=== PATIENT | female | born 1990 | race Caucasian/White ===

== ENCOUNTER 2020-02-23 17:18 | Inpatient (IN) ==
[2020-02-23] MEDS ORDERED: OXYTOCIN 30 UNITS/500 ML BAG IV PRN (17:22)
[2020-02-23 18:11] LABS: Hematocrit (blood only) 35.9 % (37-47); Hemoglobin 12.3 g/dL (12.0-16.0); Mean Corpuscular Hemoglobin 30.3 pg (25-34); Mean Corpuscular Volume 88.4 fL (80-100); Platelet Count 237 K/uL (130-400); RDW Coefficient of Variation 12.2 % (11.5-14.5); RDW Standard Deviation 38.9 fL (36.4-46.3); Red Blood Count 4.06 M/uL (4.2-5.4); White Blood Count 10.03 K/uL (4.8-10.8)
[2020-02-23 18:12] LABS: Mean Corpuscular Hgb Conc 34.3 g/dL (32-36)
--- NOTE | 2020-02-23 18:19 | History & Physical Report ---
Date of Service February 23, 2020 Assessment & Plan (1) with 37 weeks completed gestation: (2) PROM (premature rupture of membranes): Long discussion with patient about her situation. Unfortunately prom prior to labor and cervix is very unfavorable. discussed the consent form in detail. Discussed risk of rupture in spon labor 1% but in induced labor can be as high as 3%. Discussed could expectantly manage and see if has spontaneous onset of labor but discussed risk of infection with longer rom. GBS neg. Discussed likely need for pitocin, iupc and increased monitoring with dedrick. discussed would encourage epidural with dedrick. Would recommend some sort of intervention at 12 hours post rom. discussed not a candidate for cervical ripening because of her previous c/s. Fetus is category one. discussed increased risk of complication with c/s after failed trial of labor. Her covid test has come back negative. Her is now on his way from [place]. The consent form was reviewed with her point by point. She is leaning toward c/s but wants to discuss with which is reasonable. Questions answered to the best of my ability. Admission and Anticipated Discharge Date Admission Date: February 23, 2020 History of Present Illness Chief Complaint: leaking fluid Primary Care Provider: Jacquie Martinez PA-C Patient is a 29yowf with iup at 37 4/7 weeks by good dating who presents to labor and delivery with prom. Patient awoke this am and her underwear felt wet. She was advised to put on a pad and really did not feel any further leaking until she bent down to her toddler and had a large gush of fluid at abo ut 3:30pm. She has continued to grossly leak clear fluid. She feels an occasional ctx. Her last check in the office was c/l/h. She has desired . Her previous was a postdates c/s. She notes she was brought in for induction and had what sounds like several cervical ripening methods and pitocin and never dilated. REcord available and had ltcs. has otherwise been uncomplicated. labs--A+/ab-/ri/rprnr/hiv-/hepb-/gc/ct-/gbs neg/ 16 week gtt 139/ nl 2 hr gtt at 15 and 28/ covid neg today Allergies Allergy/AdvReac Type Severity Reaction Status Date / Time No Known Allergies Allergy Verified 02/19/20 13:57 Home Medications Home Medications Medication Instructions Recorded Confirmed Type prenat.vits,ashley,[id number] 1 tab PO DAILY 07/31/19 02/19/20 History lactobacillus combination no.8 PO 01/01/20 02/19/20 History breast pump #1 ea 01/21/20 02/19/20 Rx cholecalciferol (vitamin D3) PO 01/29/20 02/19/20 History metronidazole 0.75 % vaginal gel 1 appful VAGINAL DAILY 5 Days #70 g 02/15/20 02/19/20 Rx ascorbic acid-elderberry fruit PO 02/19/20 02/19/20 History Patient History Medical History (Updated 02/23/20 @ 18:24 by Reyna Hawkins MD, FACOG) Varicella Surgical History (Updated 07/31/19 @ 11:12 by Clarisa Taylor) S/P section Family History (Updated 07/31/19 @ 11:14 by Clarisa Taylor) Father Hypertension Aunt Multiple sclerosis Denies family history of Ovarian cancer Breast cancer Colorectal cancer Social History (Updated 07/31/19 @ 11:00 by Clarisa Taylor) Smoking Status: Never smoker Hx Alcohol Use: No Hx Substance Use: No Preferred Language: Yakut Communication Ability: Effective Beliefs That Will Affect Care: None marital status: marital status details: Mitch Cano (29) [phone] Current Living Situation: Family Current Living Situation Comment: spouse and daughter current occupational status: employed 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 Other Information That Helps Us Care for You: No Feels Safe at Home: Yes Safety Concerns: Feels Safe At This Time Assistive Devices: None OB History G1--08/07, c/s for failure to induce, 7#14oz [employer] OFFIC[employer] History no stds, no abnl paps Review of Systems All systems reviewed & are unremarkable except as noted in HPI & below Physical Exam Constitutional: WD/WN, vitals as above Gastrointestinal (Abdomen): soft, gravid, nt Psychiatric: A+Ox3, euthymic affect Genitourinary: sse--grossly ruptured cx--cl/50/-3/firm/mid toco--ewa efm--140s with mod variability, accels to 160s, no decels Results & Data ([facility]) Vital Signs (Past 12 Hours) Vital Signs Temp Pulse Resp BP 02/23/20 17:25 37.2 C 80 20 112/81 Code Status & VTE Plan VTE Prophylaxis Plan VTE Prophylaxis will be ordered: No Coding Level of Care Code None Diagnoses with 37 weeks completed gestation Z3A.37 PROM (premature rupture of membranes) O42.90
--- NOTE | 2020-02-23 20:44 | Communication Note ---
Date of Service: February 23, 2020 Once the patient's arrived , we again had a conversation about the plan from here. Again reiterated what I told the patient earlier. IN the meantime, she notes her contractions have become more noticable. toco--q3-5min, fetus category one. They have decided that they would like expectant management at this point. Asked when I would reevaluate and I told her probably at midnight, that would be about 8 hours after rupture. Discussed that I would recommend some type of intervention at 12 hours s/p prom. She notes she is not sure she w ants intervention/pitocin if her "body does not do this naturally". We will reevaluate at [place] and discuss situation again at that point.
[2020-02-24] MEDS ORDERED: OXYTOCIN 30 UNITS/500 ML BAG IV PRN ×2 (00:25→10:01)
--- NOTE | 2020-02-24 00:25 | Labor Progress Brief Note ---
Date of Service February 24, 2020 Subjective walked. notes she is feeling contractions. Still not rating high on pain scale. Assessment & Plan (1) PROM (premature rupture of membranes): Admission and Anticipated Discharge Date Admission Date: February 23, 2020 Discussed progress/lack of progress and what to expect. Discussed I am not surprised she has not made any change based on what has happened in the last few hours. discussed options still the same--c/s now, expectant for a few more hours, pit now. Discussed that 3 hours of pit will not be significant or likely give significant change and if she is truely wanting MATT, needs to give pit a good chance, as long as baby tolerates. Would place iupc as soon as I can get my finger in the cervix. Assured can have epidural at any point. I discussed that I felt that she needed to at least give pit 6 hours to see any significant change. She is agreeable to this. Fetus is category one. Physical Exam Constitutional: WD/WN, vitals as above Psychiatric: A+Ox3, euthymic affect Genitourinary: cx--cl/80/-2 toco--q2-5min efm--130s wtih mod variability, accels to 160s, no decels Results & Data ([facility]) Vital Signs (Past 12 Hours) Vital Signs Temp Pulse Resp BP 02/23/20 23:26 36.8 C 18 02/23/20 23:22 70 106/61 02/23/20 20:44 36.9 C 73 20 108/60 02/23/20 19:00 37.0 C 02/23/20 17:25 37.2 C 80 20 112/81 Coding Level of Care Code None Diagnoses PROM (premature rupture of membranes) O42.90
[2020-02-24] MEDS: LACTATED RINGER'S 1,000 ML IV PRN ×3 (00:37→06:22)
[2020-02-24] MEDS ORDERED: BUTORPHANOL TARTRATE 1 MG/ML VIAL IV ONE (01:58)
[2020-02-24] MEDS ORDERED: SODIUM CHLORIDE 0.9% INJ 10 ML VIAL ONE (02:44)
[2020-02-24] MEDS ORDERED: ePHEDrine sulfate 50 MG/ML AMP ONE (02:44)
[2020-02-24] MEDS ORDERED: fentaNYL citrate 100 MCG/2 ML VIAL ONE (02:45)
[2020-02-24] MEDS ORDERED: BUPIVACAINE 0.25% 30 ML VIAL ONE (02:45)
[2020-02-24] MEDS ORDERED: fentaNYL 2MCG/ML ROPIVACAINE 1.25MG/ML 100 ML BAG EPI ONE (02:46)
[2020-02-24] MEDS ORDERED: ONDANSETRON INJ 2 MG/ML 2 ML VIAL IV PRN (03:42)
[2020-02-24] MEDS ORDERED: diphenhydrAMINE 50 MG/ML VIAL IV PRN (03:42)
[2020-02-24] MEDS ORDERED: ePHEDrine sulfate 50 MG/ML AMP IV PRN (03:42)
[2020-02-24] MEDS ORDERED: PROMETHAZINE HCL 6.25 MG in SODIUM CHLORIDE 0.9% 50 ML IV PRN (03:42)
[2020-02-24] MEDS ORDERED: NALOXONE HCL 0.4 MG/1 ML VIAL/CARP IV PRN (03:42)
[2020-02-24] MEDS ORDERED: NALOXONE HCL 1 MG in SODIUM CHLORIDE 0.9% 1000ML 1,000 ML IV PRN (03:42)
--- NOTE | 2020-02-24 03:42 | Anesthesiology Consultation ---
Date of Service February 24, 2020 Assessment & Plan (1) Encounter for pre-operative examination: Chart Review Chart Review: Acceptable Risk for Surgery and Patient NOT seen in Pre Admission Testing Consults Requested none ASA ASA2 Proposed Anesthesia Anesthesia Type: Labor Epidural Risk / Benefits Reviewed With: PT / POA / Parent / Guardian, Accepts Plan and Informed Consent Obtained History Height/Weight Height: 5 ft 7 in Weight: 74.843 kg Allergies Allergy/AdvReac Type Severity Reaction Status Date / Time No Known Allergies Allergy Verified 02/23/20 21:29 Medications Home Medications Medication Instructions Recorded Confirmed Last Taken prenat.vits,ashley,hvy-[id number]-xbjdl 1 tab PO DAILY 07/31/19 02/23/20 02/23/20 08:00 breast pump #1 ea 01/21/20 02/19/20 Unknown cholecalciferol (vitamin D3) PO 01/29/20 02/19/20 Unknown ascorbic acid-elderberry fruit PO 02/19/20 02/19/20 02/23/20 08:00 Active Medications Generic Name Dose Route Start Last Admin Trade Name Freq PRN Reason Stop Dose Admin Lactated Ringer's 1,000 mls @ 125 mls/hr 02/23/20 17:22 02/24/20 03:21 Lr IV 02/25/20 17:21 125 mls/hr .Q8H PRN Administration L&D Protocol Protocol Oxytocin 30 units in 500 mls @ 4 mls/hr 02/24/20 00:25 02/24/20 02:40 Pitocin IV 02/26/20 00:24 0.24 units/hr .Q24H PRN 4 mls/hr Labor Induction/Augmentation Titration Protocol 0.24 UNITS/HR NPO Date Last Intake of Fluids: 02/24/20 Time Last Intake of Fluids: 03:00 Date Last Intake of Solids: 02/23/20 Time Last Intake of Solids: 21:00 Past Medical History Medical History (Updated 02/24/20 @ 03:42 by Cash Aguirre MD) Varicella Exercise / Class Metabolic Activity II 4-5 Yardwork/Stairs/Walk up hill Past Family History Family History (Updated 07/31/19 @ 11:14 by Clarisa Taylor) Father Hypertension Aunt Multiple sclerosis Denies family history of Ovarian cancer Breast cancer Colorectal cancer Past Surgical History Surgical History S/P section Past Anesthesia History No Hx of Anesthesia Complications and No Family Hx of Anesthesia Complications History of PONV No Hx of PONV and No Hx of Motion Sickness Social History Smoking Status: Never smoker Hx Alcohol Use: No Hx Substance Use: No Physical Exam Vital Signs Last Vital Signs Temp 36.6 C 02/24/20 02:40 Pulse 72 02/24/20 03:39 Resp 18 02/24/20 03:00 BP 90/55 L 02/24/20 03:34 Pulse Ox 100 02/24/20 03:39 ENMT Mouth: no dentition abnormality Thyromental Distance: > or= 3.5 Finger Breadths Mallampati Class: II Neck normal visual inspection Respiratory normal respiratory effort Auscultation: lungs clear to auscultation bilaterally Cardiovascular Rate/Rhythm: regular rate and regular rhythm Psychiatric Orientation: alert Testing Laboratory Results 02/23/20 18:03 Blood Type A Positive 02/23/20 18:03 Antibody Screen NEGATIVE 02/23/20 18:03
[2020-02-24] MEDS ORDERED: fentaNYL 2MCG/ML ROPIVACAINE 1.25MG/ML 100 ML BAG EPI PRN (03:45)
--- NOTE | 2020-02-24 04:16 | Labor Progress Brief Note ---
Date of Service February 24, 2020 Subjective patient recently received epidural after getting a dose of stadol Assessment & Plan (1) PROM (premature rupture of membranes): Admission and Anticipated Discharge Date Admission Date: February 23, 2020 in early labor. fetus category one. IUPC placed to aim for mvus about 200. doing well. Physical Exam Constitutional: WD/WN, vitals as above Psychiatric: A+Ox3, euthymic affect Genitourinary: cx--3/80/-2 toco--qq3-4, pit at 4, iupc just placed, first 2 contractions 40-50 mvu efm--130s wtih min -mod variability (from stadol), small accels , no decels Results & Data ([facility]) Vital Signs (Past 12 Hours) Vital Signs Temp Pulse Resp BP Pulse Ox 02/24/20 04:09 67 100 02/24/20 04:04 81 100 02/24/20 04:01 66 84/46 L 02/24/20 03:59 66 100 02/24/20 03:55 64 83/51 L 02/24/20 03:54 65 100 02/24/20 03:50 58 L 80/48 L 02/24/20 03:49 60 100 02/24/20 03:45 60 80/47 L 02/24/20 03:44 59 L 100 02/24/20 03:42 70 87/52 L 02/24/20 03:41 63 86/51 L 02/24/20 03:40 18 02/24/20 03:39 72 100 02/24/20 03:38 18 02/24/20 03:36 18 02/24/20 03:34 69 18 90/55 L 100 02/24/20 03:32 68 96/53 L 02/24/20 03:30 58 L 96/57 L 02/24/20 03:29 61 100 02/24/20 03:28 69 101/61 02/24/20 03:24 65 99 02/24/20 03:19 59 L 95/52 L 02/24/20 03:00 18 02/24/20 02:40 36.6 C 60 92/53 L 02/24/20 01:30 18 02/24/20 01:01 36.8 C 02/24/20 01:00 18 02/23/20 23:26 36.8 C 18 02/23/20 23:22 70 106/61 02/23/20 20:44 36.9 C 73 20 108/60 02/23/20 19:00 37.0 C 02/23/20 17:25 37.2 C 80 20 112/81 Coding Level of Care Code None Diagnoses PROM (premature rupture of membranes) O42.90
--- NOTE | 2020-02-24 07:13 | Labor Progress Brief Note ---
Date of Service February 24, 2020 Subjective comfortable, feeling some pressure Assessment & Plan (1) PROM (premature rupture of membranes): Admission and Anticipated Discharge Date Admission Date: February 23, 2020 Doing well. Fetus mostly category one. Making nice progress. Continue current management. Physical Exam Constitutional: WD/WN, vitals as above Psychiatric: A+Ox3, euthymic affect Genitourinary: cx--6-7/90/-1 efm--140s with mod variability, accels to 160s, rare variable toco--q2-4min, pit at 7, mvus >200 Results & Data ([facility]) Vital Signs (Past 12 Hours) Vital Signs Temp Pulse Resp BP Pulse Ox 02/24/20 07:09 71 100 02/24/20 07:04 65 100 02/24/20 07:03 68 95/58 L 02/24/20 07:00 18 02/24/20 06:59 62 99 02/24/20 06:54 67 100 02/24/20 06:49 67 89/51 L 98 02/24/20 06:44 64 98 02/24/20 06:39 67 97 02/24/20 06:34 61 95/53 L 98 02/24/20 06:30 18 02/24/20 06:29 62 98 02/24/20 06:24 63 98 02/24/20 06:19 81 97 02/24/20 06:17 68 98/57 L 02/24/20 06:14 67 97 02/24/20 06:09 65 98 02/24/20 06:04 63 99 02/24/20 06:03 61 92/52 L 02/24/20 06:00 18 02/24/20 05:59 63 98 02/24/20 05:54 72 98 02/24/20 05:49 63 100 02/24/20 05:48 62 95/53 L 02/24/20 05:44 64 100 02/24/20 05:39 72 100 02/24/20 05:34 65 100 02/24/20 05:32 76 92/58 L 02/24/20 05:30 18 02/24/20 05:29 75 100 02/24/20 05:24 62 100 02/24/20 05:19 62 100 02/24/20 05:18 63 91/55 L 02/24/20 05:14 69 100 02/24/20 05:09 65 100 02/24/20 05:04 58 L 100 02/24/20 05:03 58 L 93/52 L 02/24/20 05:00 18 02/24/20 04:59 65 100 02/24/20 04:54 67 100 02/24/20 04:49 62 100 02/24/20 04:45 59 L 18 99/53 L 02/24/20 04:44 65 100 02/24/20 04:39 70 100 02/24/20 04:34 66 100 02/24/20 04:32 36.6 C 18 02/24/20 04:30 61 100/53 L 02/24/20 04:29 65 100 02/24/20 04:25 60 100/59 L 02/24/20 04:24 61 100 02/24/20 04:23 67 99/54 L 02/24/20 04:22 60 88/49 L 02/24/20 04:19 81 100 02/24/20 04:17 65 78/42 L 02/24/20 04:14 69 100 02/24/20 04:09 67 100 02/24/20 04:04 81 100 02/24/20 04:01 66 84/46 L 02/24/20 03:59 66 100 02/24/20 03:55 64 83/51 L 02/24/20 03:54 65 100 02/24/20 03:50 58 L 80/48 L 02/24/20 03:49 60 100 02/24/20 03:45 60 80/47 L 02/24/20 03:44 59 L 100 02/24/20 03:42 70 87/52 L 02/24/20 03:41 63 86/51 L 02/24/20 03:40 18 02/24/20 03:39 72 100 02/24/20 03:38 18 02/24/20 03:36 18 02/24/20 03:34 69 18 90/55 L 100 02/24/20 03:32 68 96/53 L 02/24/20 03:30 58 L 96/57 L 02/24/20 03:29 61 100 02/24/20 03:28 69 101/61 02/24/20 03:24 65 99 02/24/20 03:19 59 L 95/52 L 02/24/20 03:00 18 02/24/20 02:40 36.6 C 60 92/53 L 02/24/20 01:30 18 02/24/20 01:01 36.8 C 02/24/20 01:00 18 02/23/20 23:26 36.8 C 18 02/23/20 23:22 70 106/61 02/23/20 20:44 36.9 C 73 20 108/60 Coding Level of Care Code None Diagnoses PROM (premature rupture of membranes) O42.90
[2020-02-24] MEDS ORDERED: bisacodyL 10 MG SUPP PR PRN (10:01)
[2020-02-24] MEDS ORDERED: SUPERCREAM 0.870% 15 GM JAR EXT PRN (10:01)
[2020-02-24] MEDS ORDERED: HYDROCORTISONE ACETATE 25 MG SUPP PR PRN (10:01)
[2020-02-24] MEDS ORDERED: ACETAMINOPHEN 325 MG TAB PO PRN (10:01)
[2020-02-24] MEDS ORDERED: BENZOCAINE 20% AER SPR 82.5 GM CAN EXT PRN (10:01)
[2020-02-24] MEDS ORDERED: DIPHTHERIA/TETANUS/PERTUSSIS 0.5 ML SYR/VIAL IM ONE (10:01)
--- NOTE | 2020-02-24 13:29 | Anesthesia Procedure Note ---
Date of Service February 24, 2020 Anesthesia Post Epidural Note Vital Signs Vital Signs: Temp Pulse Resp BP Pulse Ox 36.7 C 64 18 107/70 99 02/24/20 12:20 02/24/20 12:20 02/24/20 12:20 02/24/20 12:20 02/24/20 12:20 Pain Intensity Abdomen: Pain Intensity: 4 Notes Mental Status: alert / awake / arousable and participated in evaluation Patient Amnestic to Procedure: No Nausea / Vomiting: adequately controlled Pain: adequately controlled Airway Patency, RR, SpO2: stable & adequate BP & HR: stable & adequate Hydration State: stable & adequate Neuraxial Anesthesia: was administered and sensory block is resolving Anesthetic Complications: no major complications apparent and Pt Satisfied with anesthetic care Epidural: Removed without complications and With tip intact
[2020-02-24] MEDS: IBUPROFEN 600 MG TAB PO PRN (15:47)
[2020-02-24] MEDS: DOCUSATE SODIUM 100 MG CAP PO SCH (20:29)
[2020-02-25] MEDS: IBUPROFEN 600 MG TAB PO PRN ×2 (00:24→08:42)
[2020-02-25 05:49] LABS: Hemoglobin 10.9 g/dL (12.0-16.0)
--- NOTE | 2020-02-25 07:25 | Obstetrical Progress Note ---
Date of Service <Jacquie Thayer DO - Last Filed: 02/25/20 07:53> February 25, 2020 Assessment & Plan <Jacquie Thayer DO - Last Filed: 02/25/20 07:53> (1) state: PPD #1 - PNL: Rh pos, RI, GBS neg, COVID neg - Feels well today. Eating well, voiding well, ambulating well. - Pain well controlled with ibuprofen 600mg Q4H PRN - Continue supercream for hemorrhoids. Also discussed use of donut pillow prn. - Routine vaginal delivery care -- OOB, ambulation, diet progression as tolerated - After discharge will have 6 week follow-up with Dr. Mendoza. - Will plan for d/c home today. Subjective <Jacquie Thayer DO - Last Filed: 02/25/20 07:53> Kellie Cano is a 29 y/o female who is PPD #1 following spontaneous vaginal delivery after prom at 37 and 5/7 weeks. She reports feeling well overall this morning. Her main concern is hemorrhoids, causing a 6/10 pain; exacerbated with sitting and changing positions. She has started to use the super cream w/ some relief. No abdominal cramping. Voiding without dysuria. Tolerating meals overnight without difficulty, nausea, or vomiting. Patient has been able to ambulate some. She is passing gas and has had a small bowel movement. Has persistent lochia with some improvement this morning. Currently with mild nipple soreness. No other concerns. Patient is request ing d/c home today. Review of Systems Denies fever or chills. Denies shortness of breath or cough. Denies chest pain. Denies dysuria. Denies leg pain or leg swelling. Denies headache or changes in vision. Physical Exam <Jacquie Thayer DO - Last Filed: 02/25/20 07:53> General: Alert, oriented. No acute distress. Cardiac: Regular rate and rhythm. No murmurs. Respiratory: Clear to auscultation bilaterally a/p, no wheezes/rales/rhonchi. No increased work of breathing. Symmetrical chest rise. No respiratory distress. Abdomen: Soft, nontender, nondistended. Bowel sounds present. Uterus: Uterine fundus firm, palpable at umbilicus on right. Lower Extremities: No lower extremity edema or swelling. No deep calf pain. Tristen's negative bilaterally. Results & Data ([facility]) <Jacquie Thayer DO - Last Filed: 02/25/20 07:53> Vital Signs (Past 12 Hours) Vital Signs Temp Pulse Resp BP 02/25/20 04:35 36.8 C 65 16 105/65 02/25/20 00:30 36.9 C 60 18 91/53 L 02/24/20 20:25 36.8 C 81 18 99/67 L Laboratory Results 02/25/20 Range/Units 05:30 Hgb 10.9 L (12.0-16.0) g/dL Hct 33.0 L (37-47) % <Maikel Mendoza MD - Last Filed: 02/25/20 07:57> Co-Signing Physician Notes Patient seen and evaluated and agree with the above findings and plan. Stable for discharge Resident Activity Tracking <Jacquie Thayer DO - Last Filed: 02/25/20 07:53> Resident Involvement: Resident Care Provided Care Provided: OB Delivery
[2020-02-25] MEDS ORDERED: PRENATAL VITAMIN 1 TAB PO SCH (08:00)
[2020-02-25] MEDS: DOCUSATE SODIUM 100 MG CAP PO SCH (08:42)
--- NOTE | 2020-02-25 09:47 | Delivery Summary ---
DATE OF OPERATION: 02/24/2020 PROCEDURE: Vaginal after section with second-degree perineal laceration repair. SURGEON: Maikel Mendoza MD. PREOPERATIVE DIAGNOSES: 1. Single intrauterine at 37 weeks 5 days gestational age. 2. Spontaneous rupture of membranes. 3. Desired trial of labor after section. POSTOPERATIVE DIAGNOSES 1. Single intrauterine at 37 weeks 5 days gestational age. 2. Spontaneous rupture of membranes. 3. Desired trial of labor after section. 4. Status post delivery. ESTIMATED BLOOD LOSS: 200 mL. DRAINS: None. FLUIDS: Continuous lactated ringer. URINE OUTPUT: Not measured. COMPLICATIONS: None. FINDINGS: Viable female with weight 6 pounds 2 ounces and Apgars of 9 and 9 at 1 and 5 minutes respectively. DESCRIPTION OF PROCEDURE: The patient progressed to 10 cm dilated, 100% effaced, +2 station, pushed over intact perineum with epidural anesthesia for approximately 20 minutes to achieve delivery of the delivered in TEVIN position, rest to left transverse. No nuchal cord was noted. Body and shoulders quickly followed. was noted to be vigorous upon delivery. One 1-minute delayed cord clamping was initiated. The cord was then double clamped and cut. remained on maternal abdomen. Cord blood was obtained. Attention was then turned to deliver the placenta, which was delivered intact with 3-vessel cord, gentle cord traction. On inspection of perineum, vagina, and cervix, there was noted to be second degree perineal laceration, which was repaired with traditional crown stitch with a 3-0 Vicryl. Needle, sponge and instrument counts were correct at the completion of the case with mother and were stable in the immediate post-delivery period. I attest to the content of the Intraoperative Record and any orders documented therein. Any exception s are noted below.
[2020-02-25] MEDS ORDERED: bisacodyL 5 MG TABEC PO SCH (20:00)
== END 2020-02-25 13:20 | disposition home or self-care (01) | DRG 807 ==
LOC: OPB 17:18 → 4S1 17:19 → 4S2 02-24 12:20